=== PATIENT | male | born 1965 | race Caucasian/White ===

== ENCOUNTER → 2017-03-18 | Outpatient (CLI) | payer BC ==
--- NOTE | 2017-03-18 20:19 | PN ---
PROGRESS NOTE A 50-year-old male patient with severe symptomatic obstructive sleep apnea with an AHI up to 34, currently on CPAP pressure of 12, is coming in for an annual checkup. He is still very compliant. He is having some leaks around his original Donahue FX mask that he has been utilizing and he obviously needs his mask to be updated. I checked his compliancy data and he is using his CPAP 6 hours per night and his AHI is down to 1, is leaking around 37 L/minute and he is having some excessive oral dryness in the morning. I think the oral dryness is essentially related to his leaks and the fact that he does not have the appropriate heated tubing. All of his CPAP supplies will need to be refilled. He is benefiting from the treatment. He is waking up refreshed and alert and his body weight has been essentially stable with 2 pounds weight gain over the past 1 year. BP is 145/86, pulse 90 respirations 16, temperature 98.6, saturation 96% on room air. BMI is 40.7, weight is 260. Height is 5 feet 7 inches. GENERAL APPEARANCE: Obese, calm, comfortable. HEAD: Atraumatic, normocephalic. NECK: Supple. There is no JVD. There is no goiter or neck mass. Mallampati class IV. LUNGS: Clear to auscultation. HEART: Sounds are regular rate and rhythm. Normal S1, S2. No S3. No murmurs. ABDOMEN: Soft, nontender. No organomegaly. EXTREMITIES: There is no cyanosis or clubbing. NEUROLOGIC: Alert and oriented x3. There are no focal neurological deficits. PSYCHIATRIC: The patient has an appropriate mood and affect. IMPRESSION: Symptomatic obstructive sleep apnea with an apnea-hypopnea index of 34, currently on CPAP pressure of 12. Treatment remains successful. The patient remains compliant and he continues to benefit. He is having excessive leaks around the mask. PLAN: Reorder his CPAP mask and supplies. I introduced to him the AirFit N10 nose mask and I also gave him the Donahue FX wide nose mask and he will decide in between these 2 and refills will be given accordingly. He will be given a heated tubing system. Keep same pressure setting. Encourage weight loss. See me back in a year's time, earlier if needed. Treatment remains successful. MMODL / IJN: [id number] /
== END | disposition home or self-care (01) ==
LOC: SLEEP 16:40
PROVIDERS: ATTEND Internal Medicine Critical Care Medicine
DX: G47.33 Obstructive sleep apnea (adult) (pediatric) (principal); Z99.89 Dependence on other enabling machines and devices

== ENCOUNTER → 2018-02-02 | Outpatient (CLI) | payer BC ==
--- NOTE | 2018-02-02 10:14 | CT ---
EXAMINATION TYPE: CT brain wo/w con DATE OF EXAM: 02/02/2018 COMPARISON: None HISTORY: Dizziness and near syncopal episodes CT DLP: 2253 mGycm Automated exposure control for dose reduction was used. CONTRAST: CT scan of the head is performed without and with IV Contrast, patient injected with 100 mL of Isovue 300. FINDINGS: There is no abnormal enhancing mass or midline shift identified. The ventricles and sulci are within normal limits in size. The globes are intact and the visualized sinuses are remarkable for mucosal disease in the maxillary sinuses, ethmoid air cells. IMPRESSION: Negative contrast enhanced head CT exam. Mild sinus disease.
--- NOTE | 2018-02-02 10:35 | US ---
EXAMINATION TYPE: US carotid duplex BILAT DATE OF EXAM: 02/02/2018 COMPARISON: NONE CLINICAL HISTORY: R55 syncope, R07.89 Chest pain. EXAM MEASUREMENTS: RIGHT: Peak Systolic Velocity (PSV) cm/sec ----- Right CCA: 65.8 ----- Right ICA: 53.7 ----- Right ECA: 85.7 ICA/CCA ratio: 0.8 RIGHT: End Diastole cm/sec ----- Right CCA: 20.5 ----- Right ICA: 19.4 ----- Right ECA: 9.5 LEFT: Peak Systolic Velocity (PSV) cm/sec ----- Left CCA: 67.8 ----- Left ICA: 80.2 ----- Left ECA: 107.7 ICA/CCA ratio: 1.2 LEFT: End Diastole cm/sec ----- Left CCA: 18.3 ----- Left ICA: 33.3 ----- Left ECA: 28.1 VERTEBRALS (direction of flow): Right Vertebral: not visualized Left Vertebral: not visuallized Rhythm: Normal Technically difficult. Patient has large body habitus and short neck IMPRESSION: 1. No significant flow-limiting stenosis based on velocities. 2. Nonvisualization of the vertebral arteries during this exam Criteria for Assigning % of Stenosis / Diameter reduction (Estimation based on the indirect measurements of the internal carotid artery velocities (ICA PSV). 1. Normal (no stenosis)=ICA PSV < 125 cm/s: ratio < 2.0: ICA EDV<40 cm/s. 2. Less than 50% stenosis=ICA PSV < 125 cm/s: ratio < 2.0: ICA EDV<40 cm/s. 3. 50 to 69% stenosis=ICA PSV of 125 to 230 cm/s: ration 2.0 ? 4.0: ICA EDV 40-100 cm/s. 4. Greater than 70% stenosis to near occlusion= ICA PSV > 230 cm/s: ratio > 4.0: ICA EDV > 100 cm/s. 5. Near occlusion= ICA PSV velocities may be low or undetectable: variable ratio and ICA EDV. 6. Total occlusion=unable to detect flow.
--- NOTE | 2018-02-02 14:03 | EST ---
EXERCISE STRESS AGE: 52 SEX: M HT: 66 WT: 250 PROTOCOL: Murtaza stress test STAGE: 3 DURATION OF EXERCISE: 9:00 HEART RATE REST: 82 BLOOD PRESSURE REST: 131/82 MAXIMUM HEART RATE ACHIEVED: 145 MAXIMUM BLOOD PRESSURE: 168/57 85% MPHR: 145 100% MPHR: 170 METS: 10.3 INDICATIONS: Dizziness. CLINICAL INFORMATION: Baseline rhythm is sinus mechanism, rate of 82, normal axis and intervals, poor R-wave progression. Baseline blood pressure 131/82 mmHg. Patient exercised on Murtaza protocol for 9 minutes reaching peak rate of 145 beats per minute which is equal to 85% maximum predicted heart rate. Peak blood pressure 168/57 mmHg. Test was terminated due to fatigue. There was no chest pain. Electrocardiograph monitoring revealed no evidence of diagnostic ischemic ST deviation. FINDINGS: 1. Good exercise tolerance with normal electrocardiographic response to exercise. 2. No evidence of significant arrhythmia. MMODL / IJN: [id number] /
--- NOTE | 2018-02-03 06:31 | ECHOF ---
Referral Reason:R55 syncope, R07.89 Chest pain MEASUREMENTS -------- HEIGHT: 167.6 cm WEIGHT: 113.4 kg BP: RVIDd: 3.3 cm (< 3.3) IVSd: 1.3 cm (0.6 - 1.1) LVIDd: 4.4 cm (3.9 - 5.3) LVPWd: 1.3 cm (0.6 - 1.1) IVSs: 1.5 cm LVIDs: 3.1 cm LVPWs: 1.8 cm LAESV Index (A-L): 25.65 ml/m Ao Diam: 3.4 cm (2.0 - 3.7) AV Cusp: 2.4 cm (1.5 - 2.6) LA Diam: 3.6 cm (2.7 - 3.8) MV EXCURSION: 21.866 mm (> 18.000) MV EF SLOPE: 172 mm/s (70 - 150) EPSS: 0.5 cm MV E John: 0.83 m/s MV DecT: 255 ms MV A John: 0.80 m/s MV E/A Ratio: 1.04 RAP: 5.00 mmHg RVSP: 37.68 mmHg FINDINGS -------- Sinus rhythm. This was a technically good study. The left ventricular size is normal. There is mild concentric left ventricular hypertrophy. Overa ll left ventricular systolic function is normal with, an EF between 55 - 60 %. The right ventricle is mildly enlarged. Normal LA size by volume 22+/-6 ml/m2. The right atrium is normal in size. The aortic valve is trileaflet and appears structurally normal. The mitral valve is normal. Mild mitral regurgitation is present. Mild tricuspid regurgitation present. There is mild pulmonary hypertension. The right ventricular systolic pressure, as measured by Doppler, is 37.68mmHg. There is no pulmonic regurgitation present. The aortic root size is normal. Normal inferior vena cava with normal inspiratory collapse consistent with estimated right atrial pre ssure of 5 mmHg. There is no pericardial effusion. CONCLUSIONS -------- 1. Sinus rhythm. 2. This was a technically good study. 3. The left ventricular size is normal. 4. There is mild concentric left ventricular hypertrophy. 5. Overall left ventricular systolic function is normal with, an EF between 55 - 60 %. 6. The right ventricle is mildly enlarged. 7. Normal LA size by volume 22+/-6 ml/m2. 8. The aortic valve is trileaflet and appears structurally normal. 9. Mild mitral regurgitation is present. 10. Mild tricuspid regurgitation present. 11. There is mild pulmonary hypertension. 12. There is no pulmonic regurgitation present. 13. The aortic root size is normal. 14. Normal inferior vena cava with normal inspiratory collapse consistent with estimated right atrial pressure of 5 mmHg. 15. There is no pericardial effusion. PROFESSIONAL CASTER: Gaby Vazquez RDCS
== END | disposition home or self-care (01) ==
LOC: RADCTMAIN 08:46
PROVIDERS: ATTEND Family Medicine
DX: R55 Syncope and collapse (principal); R07.89 Other chest pain
CPT/HCPCS: 93017; 93306; 93880; 70470; 93005; Q9967

== ENCOUNTER → 2018-07-28 | Outpatient (CLI) | payer BC ==
--- NOTE | 2018-07-28 21:35 | PN ---
PROGRESS NOTE Christopher is a 52 coming in for a compliancy check regarding his obstructive sleep apnea and severe PURNIMA with an AHI of 32, and the patient is on a CPAP pressure of 12. He has lost about 12 pounds since last evaluation. Continues to be extremely compliant with a pressure of 12 cm of water. Based on the compliance data, the patient has been averaging more than 6 hours of CPAP use per night. His CPAP compliancy for more than 4 hours is above 75% is leak is 20 L/minutes. AHI is down to 0.7. Doing well. Using the Mirage FX nose mask. REVIEW OF SYSTEMS: Fourteen-point review of system was done. Negative other than the things mentioned above in history of present illness. No major hypersomnia or sleepiness. Quite comfortable with his mask. Weight has been fluctuating, is down for now. No nausea. No vomiting. No nasal dryness. No sinus infections. No aerophagia. No abdominal distention. No other complaints otherwise. PHYSICAL EXAMINATION: BP is 112/74, pulse 103, respirations 16, temperature 98.1 saturation 96% on room air. Height is 5 feet, 10 inches, weight 248, Arlington score is 4. BMI 38. GENERAL APPEARANCE: Calm, comfortable. HEENT: Head is atraumatic, normocephalic. NECK: Supple. Mallampati class IV. There is no goiter or neck mass. LUNGS: Clear to auscultation. HEART: Sounds regular rate and rhythm. Normal S1, S2. No S3. No murmurs. ABDOMEN: Soft, nontender. No organomegaly. EXTREMITIES: No edema. No cyanosis or clubbing. IMPRESSION: 1. Symptomatic obstructive sleep apnea AHI of 32, currently on CPAP pressure of 12, currently treatment continues to be successful. 2. Obesity with interval weight loss. Weight is down to 248. 3. Hypersomnia, improved. Arlington score is down to 4. PLAN: Encourage further weight loss. Switch this patient to a DreamWear nose mask medium size. Continue implementing good sleep hygiene measures and see me back in a year's time for a follow up. His treatment is extremely successful for now. MMODL / IJN: [id number] /
== END | disposition home or self-care (01) ==
LOC: SLEEP 16:17
PROVIDERS: ATTEND Internal Medicine Critical Care Medicine
DX: G47.33 Obstructive sleep apnea (adult) (pediatric) (principal); E66.9 Obesity, unspecified; Z68.38 Body mass index [BMI] 38.0-38.9, adult; Z99.89 Dependence on other enabling machines and devices

== ENCOUNTER 2019-11-14 17:30 | Emergency (ER) | payer BC ==
[2019-11-14] MEDS ORDERED: MORPHINE SULFATE 4 MG/ML SYRINGE IV STA (17:54)
[2019-11-14] MEDS ORDERED: SODIUM CHLORIDE 0.9% 1,000 ML IV STA (17:54)
[2019-11-14] MEDS ORDERED: ONDANSETRON 4 MG/2 ML VIAL IVP STA (17:56)
--- NOTE | 2019-11-14 18:00 | ED ---
General Adult HPI - General Chief complaint: Abdominal Pain Stated complaint: abd pain Time Seen by Provider: 11/14/19 17:44 Source: patient, RN notes reviewed, old records reviewed Mode of arrival: ambulatory Limitations: no limitations - History of Present Illness Initial comments: 53-year-old male presenting for evaluation of vomiting, diarrhea. Symptoms began yesterday morning approximately 36 hours prior to arrival. Initially the patient developed diarrhea which was associated with severe crampy abdominal pain. He then ate some clam chowder which did not sit well. He had again began to vomit. He's had diarrhea at least every hour over the past day. He did describes severe pain prior to the episodes of diarrhea with minimal discomfort in between. No blood in either the vomiting or the diarrhea - Related Data Home Medications Medication Instructions Recorded Confirmed Cetirizine HCl [Zyrtec] 10 mg PO DAILY PRN 11/14/19 11/14/19 Olmesartan Medoxomil [Benicar] 40 mg PO DAILY 11/14/19 11/14/19 Allergies Allergy/AdvReac Type Severity Reaction Status Date / Time No Known Allergies Allergy Verified 11/14/19 18:53 Review of Systems ROS Statement: Those systems with pertinent positive or pertinent negative responses have been documented in the HPI. ROS Other: All systems not noted in ROS Statement are negative. Past Medical History Past Medical History: Hypertension History of Any Multi-Drug Resistant Organisms: None Reported Past Surgical History: Orthopedic Surgery Past Psychological History: No Psychological Hx Reported Smoking Status: Current every day smoker Past Alcohol Use History: Daily Past Drug Use History: None Reported General Exam Limitations: no limitations General appearance: alert, in no apparent distress Head exam: Present: atraumatic, normocephalic Eye exam: Present: normal appearance, PERRL ENT exam: Present: normal exam Neck exam: Present: normal inspection. Absent: tenderness, meningismus Respiratory exam: Present: normal lung sounds bilaterally. Absent: respiratory distress Cardiovascular Exam: Present: normal rhythm, tachycardia GI/Abdominal exam: Present: soft, distended, hernia (Soft and easily reducible ventral hernia). Absent: tenderness, guarding, rebound Extremities exam: Present: normal inspection, full ROM Back exam: Present: normal inspection. Absent: full ROM, tenderness Neurological exam: Present: alert, oriented X3 Psychiatric exam: Present: normal affect, normal mood Skin exam: Present: warm, dry, intact. Absent: cyanosis, diaphoretic Course Vital Signs 11/14/19 11/14/19 17:40 18:38 Temperature 98.1 F 97.6 F Pulse Rate 113 H 92 Respiratory 18 18 Rate Blood Pressure 130/77 131/77 O2 Sat by Pulse 95 95 Oximetry Medical Decision Making - Medical Decision Making 53-year-old male with 36 hours of vomiting and diarrhea. He did have recent travel outside of the [facility]. I suspect this is a gastroenteritis. Patient's abdomen is soft nontender, no rebound or guarding. He has stable vitals. He is given IV hydration, morphine, and Zofran. On reevaluation is feeling much better, no pain, no further vomiting or diarrhea while in the emergency d epartment. His laboratory testing reveals leukocytosis, but is otherwise unremarkable. Normal kidney function, normal electrolytes. I did give this patient advised regarding return parameters he is eager for discharge. He is thirsty and hungry. He will return with worsening or changing symptoms. - Lab Data Result diagrams: 11/14/19 18:11 11/14/19 18:11 Lab Results 11/14/19 11/14/19 11/14/19 Range/Units 18:11 18:11 18:11 WBC 16.9 H (3.8-10.6) k/uL RBC 4.79 (4.30-5.90) m/uL Hgb 16.9 (13.0-17.5) gm/dL Hct 49.3 (39.0-53.0) % MCV 102.9 H (80.0-100.0) fL MCH 35.2 H (25.0-35.0) pg MCHC 34.2 (31.0-37.0) g/dL RDW 11.8 (11.5-15.5) % Plt Count 218 (150-450) k/uL Neutrophils % 80 % Lymphocytes % 11 % Monocytes % 5 % Eosinophils % 1 % Basophils % 1 % Neutrophils # 13.6 H (1.3-7.7) k/uL Lymphocytes # 1.8 (1.0-4.8) k/uL Monocytes # 0.8 (0-1.0) k/uL Eosinophils # 0.2 (0-0.7) k/uL Basophils # 0.1 (0-0.2) k/uL PT 10.7 (9.0-12.0) sec INR 1.0 (<1.2) APTT 25.5 (22.0-30.0) sec Sodium 135 L (137-145) mmol/L Potassium 4.0 (3.5-5.1) mmol/L Chloride 101 (98-107) mmol/L Carbon Dioxide 26 (22-30) mmol/L Anion Gap 8 mmol/L BUN 20 (9-20) mg/dL Creatinine 0.91 (0.66-1.25) mg/dL Est GFR (CKD-EPI)AfAm >90 (>60 ml/min/1.73 sqM) Est GFR (CKD-EPI)NonAf >90 (>60 ml/min/1.73 sqM) Glucose 150 H (74-99) mg/dL Plasma Lactic Acid Oleg (0.7-2.0) mmol/L Calcium 10.6 H (8.4-10.2) mg/dL Magnesium 1.9 (1.6-2.3) mg/dL Total Bilirubin 1.0 (0.2-1.3) mg/dL AST 45 (17-59) U/L ALT 45 (4-49) U/L Alkaline Phosphatase 126 (38-126) U/L Total Protein 7.9 (6.3-8.2) g/dL Albumin 4.4 (3.5-5.0) g/dL Amylase 48 (30-110) U/L Lipase 244 (23-300) U/L 11/14/19 Range/Units 18:11 WBC (3.8-10.6) k/uL RBC (4.30-5.90) m/uL Hgb (13.0-17.5) gm/dL Hct (39.0-53.0) % MCV (80.0-100.0) fL MCH (25.0-35.0) pg MCHC (31.0-37.0) g/dL RDW (11.5-15.5) % Plt Count (150-450) k/uL Neutrophils % % Lymphocytes % % Monocytes % % Eosinophils % % Basophils % % Neutrophils # (1.3-7.7) k/uL Lymphocytes # (1.0-4.8) k/uL Monocytes # (0-1.0) k/uL Eosinophils # (0-0.7) k/uL Basophils # (0-0.2) k/uL PT (9.0-12.0) sec INR (<1.2) APTT (22.0-30.0) sec Sodium (137-145) mmol/L Potassium (3.5-5.1) mmol/L Chloride (98-107) mmol/L Carbon Dioxide (22-30) mmol/L Anion Gap mmol/L BUN (9-20) mg/dL Creatinine (0.66-1.25) mg/dL Est GFR (CKD-EPI)AfAm (>60 ml/min/1.73 sqM) Est GFR (CKD-EPI)NonAf (>60 ml/min/1.73 sqM) Glucose (74-99) mg/dL Plasma Lactic Acid Oleg 1.2 (0.7-2.0) mmol/L Calcium (8.4-10.2) mg/dL Magnesium (1.6-2.3) mg/dL Total Bilirubin (0.2-1.3) mg/dL AST (17-59) U/L ALT (4-49) U/L Alkaline Phosphatase (38-126) U/L Total Protein (6.3-8.2) g/dL Albumin (3.5-5.0) g/dL Amylase (30-110) U/L Lipase (23-300) U/L Disposition Clinical Impression: Nausea vomiting and diarrhea Disposition: HOME SELF-CARE Condition: Good Instructions (If sedation given, give patient instructions): Acute Nausea and Vomiting (ED), Acute Diarrhea (ED) Is patient prescribed a controlled substance at d/c from ED?: No Referrals: Akash Maldonado MD [Primary Care Provider] - 1-2 days Time of Disposition: 19:13
[2019-11-14 18:21] LABS: Basophils # (A) 0.1 k/uL (0-0.2); Basophils % (A) 1 %; Eosinophils # (A) 0.2 k/uL (0-0.7); Eosinophils % (A) 1 %; HCT 49.3 % (39.0-53.0); HGB 16.9 gm/dL (13.0-17.5); Lymphocytes # (A) 1.8 k/uL (1.0-4.8); Lymphocytes % (A) 11 %; MCH 35.2 pg (25.0-35.0); MCHC 34.2 g/dL (31.0-37.0); MCV 102.9 fL (80.0-100.0); Mean Platelet Volume 7.7; Monocytes # (A) 0.8 k/uL (0-1.0); Monocytes % (A) 5 %; Neutrophils # (A) 13.6 k/uL (1.3-7.7); Neutrophils % (A) 80 %; Platelet Count 218 k/uL (150-450); RBC 4.79 m/uL (4.30-5.90); RDW 11.8 % (11.5-15.5); WBC 16.9 k/uL (3.8-10.6)
[2019-11-14 18:32] LABS: ALT 45 U/L (4-49); AST 45 U/L (17-59); African American GFR (CKD) >90 (>60 ml/min/1.73 sqM); Albumin 4.4 g/dL (3.5-5.0); Alkaline Phosphatase 126 U/L (38-126); Amylase 48 U/L (30-110); Anion Gap 8 mmol/L; Blood Urea Nitrogen 20 mg/dL (9-20); Calcium 10.6 mg/dL (8.4-10.2); Carbon Dioxide 26 mmol/L (22-30); Chloride 101 mmol/L (98-107); Glucose 150 mg/dL (74-99); Magnesium 1.9 mg/dL (1.6-2.3); Non-African American GFR(CKD) >90 (>60 ml/min/1.73 sqM); Sodium 135 mmol/L (137-145); Total Protein 7.9 g/dL (6.3-8.2)
[2019-11-14 18:33] LABS: Partial Thromboplastin Time 25.5 sec (22.0-30.0); Prothrombin Time 10.7 sec (9.0-12.0)
--- NOTE | 2019-11-14 19:01 | XR ---
KUB HISTORY: Abdominal pain Frontal KUB submitted on 3 images Lung bases are clear. There is no evident bowel obstruction or pneumoperitoneum. No pathologic calcif ication. Bone mineralization is normal. IMPRESSION: Nonobstructive bowel gas pattern.
[2019-11-14 19:34] VITALS: BP 141/80; PULSE 88; RESP 14; TEMP 98
== END 2019-11-14 19:30 | disposition home or self-care (01) ==
LOC: EC 17:30
DX: R11.2 Nausea with vomiting, unspecified (principal); R19.7 Diarrhea, unspecified; D72.829 Elevated white blood cell count, unspecified; R10.9 Unspecified abdominal pain; I10 Essential (primary) hypertension; F17.200 Nicotine dependence, unspecified, uncomplicated; Z79.899 Other long term (current) drug therapy
CPT/HCPCS: 36415; 80053; 82150; 83605; 83690; 83735; 85025; 85610; 85730; 74018; 99284; 96374; 96375; 96361; J2270; J2405

== ENCOUNTER 2020-02-01 09:17 | Day surgery (SDC) | payer BC ==
[2020-01-28 15:49] VITALS: BMI 39.5
[~2020-02-01 09:17] MED LIST: LACTATED RINGERS 1,000 ML IV SCH; LIDOCAINE 1% (10MG/ML) FOR IV START INTRADERMA PRN
[2020-02-01 09:39] VITALS: TEMP 97
[2020-02-01] MEDS ORDERED: PROPOFOL 10 MG/ML 20 ML VIAL IV ONE (10:29)
--- NOTE | 2020-02-01 11:13 | P.GSHP ---
History of Present Illness H&P Date: 02/01/20 Chief Complaint: Colon cancer screening Patient here today for colonoscopy. Last colonoscopy 7 years ago. Patient's mother had colon cancer. No bowel complaints. Past Medical History Past Medical History: Hypertension, Sleep Apnea/CPAP/BIPAP Additional Past Medical History / Comment(s): abdominal hernia, occ diarrhea, diverticulitis, rectal bleeding, History of Any Multi-Drug Resistant Organisms: None Reported Past Surgical History: Orthopedic Surgery Additional Past Surgical History / Comment(s): rt knee surgery after football injury Past Anesthesia/Blood Transfusion Reactions: No Reported Reaction Smoking Status: Current every day smoker - Past Family History Mother Family Medical History: Cancer Additional Family Medical History / Comment(s): colon Medications and Allergies Home Medications Medication Instructions Recorded Confirmed Type Cetirizine HCl [Zyrtec] 10 mg PO DAILY 11/14/19 02/01/20 History Olmesartan Medoxomil [Benicar] 40 mg PO DAILY 11/14/19 02/01/20 History hydroCHLOROthiazide [Hydrodiuril] 25 mg PO DAILY 01/28/20 02/01/20 History Allergies Allergy/AdvReac Type Severity Reaction Status Date / Time No Known Allergies Allergy Verified 01/28/20 15:41 Surgical - Exam Vital Signs Temp Pulse Resp BP Pulse Ox 97.0 F L 80 17 146/87 95 02/01/20 09:38 02/01/20 09:38 02/01/20 09:38 02/01/20 09:38 02/01/20 09:38 Physical exam: General: Well-developed, well-nourished HEENT: Normocephalic, sclerae nonicteric Abdomen: Nontender, nondistended Extremities: No edema Neuro: Alert and oriented Assessment and Plan (1) Colon cancer screening Narrative/Plan: Will proceed with colonoscopy Current Visit: Yes Status: Acute Code(s): Z12.11 - ENCOUNTER FOR SCREENING FOR MALIGNANT NEOPLASM OF COLON SNOMED Code(s): 597596913
[2020-02-01] MEDS ORDERED: IV FLUID CONTINUATION 1,000 ML IV ONE (11:31)
--- NOTE | 2020-02-01 11:32 | P.PCN ---
Date of Procedure: 02/01/20 Procedure(s) Performed: PREOPERATIVE DIAGNOSIS: Colon cancer screening, family history in mother POSTOPERATIVE DIAGNOSIS: Transverse colon polyp, rectal polyp, mild left sided colitis, diverticulosis PROCEDURE: Colonoscopy with polypectomy and biopsy ANESTHESIA: MAC SURGEON: Carson Lowry M.D. SPECIMENS: Polyps, colitis ENDOSCOPIC PROCEDURE: The patient was placed on the endoscopy table in the left decubitus position. The Olympus colonoscope was inserted into the anus and passed under direct visualization to the base of the cecum. The appendiceal orifice was visualized. From that point the scope was slowly withdrawn inspecting all surfaces carefully. There were no neoplastic inflammatory or p olypoid lesions throughout the cecum and ascending colon. In the transverse colon a small polyp was identified and removed using the snare with cautery technique. The remainder of the transverse descending and sigmoid colon was free of polyps. In the rectum another polyp was identified and removed in a similar fashion. This was in the proximal rectum. The patient had left-sided diverticulosis present. There was mild inflammation of the mucosa in the mid sigmoid colon. This may be on the basis of resolving diverticulitis mild colitis. Biopsies with the cold biopsy forceps took place. Digital rectal examination was normal. The patient was taken to the recovery room in stable condition per anesthesia guidelines. RECOMMENDATIONS: Await biopsy results.
[2020-02-01 11:58] VITALS: BP 126/78; PULSE 70; RESP 18
== END 2020-02-01 12:13 | disposition home or self-care (01) ==
LOC: ORWHC2ENDO 09:17
PROVIDERS: ATTEND Surgery
DX: Z12.11 Encounter for screening for malignant neoplasm of colon (principal); D12.3 Benign neoplasm of transverse colon; K62.1 Rectal polyp; K51.50 Left sided colitis without complications; K57.30 Diverticulosis of large intestine without perforation or abscess without bleeding; I10 Essential (primary) hypertension; G47.33 Obstructive sleep apnea (adult) (pediatric); K46.9 Unspecified abdominal hernia without obstruction or gangrene; F17.200 Nicotine dependence, unspecified, uncomplicated; Z99.89 Dependence on other enabling machines and devices; Z87.19 Personal history of other diseases of the digestive system; Z98.890 Other specified postprocedural states; Z87.828 Personal history of other (healed) physical injury and trauma; Z79.899 Other long term (current) drug therapy; Z80.0 Family history of malignant neoplasm of digestive organs
CPT/HCPCS: 88305; 45380; 45385; J2704

== ENCOUNTER → 2020-04-18 | Outpatient (CLI) | payer BC ==
--- NOTE | 2020-04-18 17:53 | PN ---
PROGRESS NOTE Christopher is 54 with a known history of obstructive sleep apnea coming in for an annual check regarding his PURNIMA. He is still on CPAP therapy and he is doing very well while on treatment. His only complaint is occasional snoring, and I attribute this to leaks from his mouth. I checked the compliance data on his CPAP machine, and the patient is doing excellent at a pressure of 12 cm of water. He is using the AirFit N30i nasal mask, and based on the compliance data, the patient has been utilizing his machine every night without any interruption and achieving more than 4 hours of CPAP use approximately 70% of the time. His AHI is down to 0.7 while on treatment. His leak is on the order of 10 L/minute. He is alert and awake during the day. No major hypersomnia, somnolence or sleepiness. Note that his baseline AHI was 32, consistent with severe obstructive sleep apnea. His weight has been up by around 10 pounds since his original diagnosis. No other complaints otherwise for now. His machine is functional and he has no new-onset comorbidities. His blood pressure is under good control. BP is 125/77, pulse 77, respirations 20, temperature 96.6, saturation 97%. Weight is 258. Portland score is 11, BMI 39.2. GENERAL APPEARANCE: Calm, comfortable, obese. HEAD: Atraumatic, normocephalic. NECK: Supple. No JVD. No goiter or neck masses. LUNGS: Clear to auscultation. HEART: Heart sounds are regular rate and rhythm. Normal S1, S2. No S3, S4. No murmurs. ABDOMEN: Soft, nontender. No organomegaly. EXTREMITIES: No edema. No cyanosis or clubbing. NEUROLOGIC: Awake and alert. There is no focal neurological deficit. IMPRESSION: 1. Severe obstructive sleep apnea, AHI of 32, currently on CPAP pressure of 12 cm of water. Treatment continues to be successful. 2. Limited snoring, probably related to some oral leaks. 3. Obesity with a BMI of 39.2 with interval 10-pound weight gain. 4. Hypersomnia, recovered. Portland score is low. 5. Hypertension, well controlled. PLAN: 1. Continue using the same CPAP machine at the same level of pressure, which is 12 cm of water. 2. Refill the mask and update the mask to an AirFit N30i, medium size. 3. Encourage weight loss. 4. Allow the patient to use a chin strap to eliminate the snoring. 5. See me back in a year's time in followup. MUSHTAQ / IJN: [id number] /
== END | disposition home or self-care (01) ==
LOC: SLEEP 16:34
PROVIDERS: ATTEND Internal Medicine Critical Care Medicine
DX: G47.33 Obstructive sleep apnea (adult) (pediatric) (principal); E66.9 Obesity, unspecified; I10 Essential (primary) hypertension; Z68.39 Body mass index [BMI] 39.0-39.9, adult; Z99.89 Dependence on other enabling machines and devices

== ENCOUNTER → 2021-01-09 | Outpatient (CLI) | payer BC ==
--- NOTE | 2021-01-09 18:57 | PN ---
PROGRESS NOTE Christopher is 55, coming in for an annual check regarding obstructive sleep apnea. The patient is currently on CPAP pressure at 12 cm of water and using a nasal mask. During his last evaluation I tried him on an AirFit N20i nasal mask, which he tried, and he was unable to achieve a good seal. He went back and he used his original nose mask, which is probably more comfortable for him. On today's evaluation, we discussed the possibility of switching the patient to a full-face mask. I noticed that his compliance has gone down. He has utilized his machine only 18/30 days and he has used the machine on an average of 6.1 hours while on. His leak is around 13 L/minute. His AHI is down to 1.1. While on treatment, he feels better. His sleep quality continues to improve. The issue for now is finding him an appropriate mask interface. His weight is down by around 12 pounds since his last evaluation. His vitals: BP is 134/84, pulse 72, respirations 16, temperature 97.4, saturation 97% on room air. BMI 37.7. Moran score is 8. Weight is 246. GENERAL APPEARANCE: Calm, comfortable. HEAD: Atraumatic, normocephalic. Neck is supple. No JVD. No goiter or neck masses. Mallampati class IV. LUNGS: Diminished; otherwise clear. Heart sounds are regular rate and rhythm. Normal S1, S2. No S3, S4. No murmurs. ABDOMEN: Soft, nontender. No organomegaly. EXTREMITIES: No edema. No cyanosis or clubbing. IMPRESSION: 1. Severe obstructive sleep apnea, AHI of 32, currently on CPAP pressure of 12. Compliance has dropped compared to last year, mainly due to mask-related issues. 2. Hypersomnia, improved. Current Moran score is 8. 3. Hypertension. 4. Obesity with interval 12-pound weight loss. PLAN: 1. Continue CPAP therapy. Switch this patient to an APAP, pressure minimum of 6, maximum of 12, with a RAMP time of 30 minutes. 2. Offer the patient a full-face mask. I offered him the AirFit F20 medium-sized full- face mask. 3. Encourage further weight loss. 4. Monitor the clinical response to the full-face mask and let me know accordingly. Will order more masks if he is able to tolerate a full-face mask without any major difficulties. Will continue to follow. MMODL / IJN: [id number] /
== END ==
LOC: SLEEP 16:01
PROVIDERS: ATTEND Internal Medicine Critical Care Medicine
DX: G47.33 Obstructive sleep apnea (adult) (pediatric) (principal); I10 Essential (primary) hypertension; E66.9 Obesity, unspecified; Z99.89 Dependence on other enabling machines and devices; Z68.37 Body mass index [BMI] 37.0-37.9, adult; F17.200 Nicotine dependence, unspecified, uncomplicated

== ENCOUNTER → 2022-01-09 | Outpatient (CLI) | payer BC ==
--- NOTE | 2022-01-09 21:41 | CT ---
EXAMINATION TYPE: CT urogram wo/w con DATE OF EXAM: 01/09/2022 COMPARISON: Abdominal x-ray November 14, 2019 HISTORY: Gross hematuria CT DLP: 3445 mGycm, Automated Exposure Control for Dose Reduction was Utilized. CONTRAST: CT scan of the abdomen and pelvis is performed without oral and without and with IV Contrast, patient injected with 100ML mL of Isovue 300. Urogram protocol with 3-D reconstructed images created on an [employer] workstation and reviewed. FINDINGS: KUB: Noncontrast images show no renal calculi bilaterally. Postcontrast images show symmetric cortico medullary uptake and excretion without concerning solid or cystic renal mass identified in either kid arsh. Satisfactory opacification of the bilateral ureters without calculus. Urinary bladder shows no s uspicious focal mass or intraluminal calculus. LUNG BASES: Trace anterior inferior pericardial effusion. Calcification at the level of the mitral va lve. LIVER/GB: Tiny dependent calcified gallstone. Visualized liver isodense to slightly hypodense relativ e to spleen on noncontrast images consistent with hepatocellular disease. Liver size mildly enlarged. PANCREAS: No significant abnormality is seen. SPLEEN: Spleen mildly enlarged at 14.4 cm long axis axial image 22 series 6. ADRENALS: No significant abnormality is seen. BOWEL: Suboptimal evaluation without enteric contrast. Sigmoid colonic diverticulosis. Mild fat stran ding involving sigmoid colon in the pelvis axial image 67. Acute diverticulitis is suspected. No free air. No well-formed fluid collection or abscess seen. PROSTATE/SEMINAL VESICLES: Enlarged prostate consistent with BPH bulging on bladder base. LYMPH NODES: No greater than 1cm abdominal or pelvic lymph nodes are appreciated. OSSEOUS STRUCTURES: No significant abnormality is seen. OTHER: Moderate size fat-containing bilateral inguinal hernias. [id number] calcified plaque of the aorta extends into branch vessels. IMPRESSION: 1. Source of gross hematuria not identified. 2. Hepatomegaly and underlying hepatocellular disease. Mild splenomegaly noted. No intra-abdominal as cites. Correlate clinically. 3. Redundant sigmoid colon with diverticulosis and suggestion of mild uncomplicated acute diverticuli tis in the pelvis. Correlate clinically. [employer] notification to the ordering physician is performed at time of dictation.
== END | disposition home or self-care (01) ==
LOC: RADCTMAIN 14:22
PROVIDERS: ATTEND Urology
DX: K76.89 Other specified diseases of liver (principal); R16.2 Hepatomegaly with splenomegaly, not elsewhere classified; K57.30 Diverticulosis of large intestine without perforation or abscess without bleeding
CPT/HCPCS: 74178; 74400; Q9967

== ENCOUNTER → 2024-02-11 | Outpatient (CLI) | payer BC ==
--- NOTE | 2024-02-11 09:06 | MM ---
Reason for Exam: Clinical finding. Indicated Problems: Lump or thickening of the right side for 3 Week(s). Tissue Density: The breasts are almost entirely fatty. Findings: Analyzed By CAD. Right-sided retroareolar density noted likely reflecting gynecomastia. Ultrasound correlation is advised. Left breast is unremarkable. Overall Assessment: Incomplete: need additional imaging evaluation, BI-RAD 0 Management: Diagnostic Breast Ultrasound of the left breast. . Results were given to the patient verbally at the time of exam. Patient should continue monthly self-breast exams. A clinical breast exam by your physician is recommended on an annual basis. This exam should not preclude additional follow-up of suspicious palpable abnormalities. Note on Jenn scores and lifetime risk: 1. A Jenn score greater than 3% is considered moderate risk. If this is the case, consider specialist referral to assess eligibility for a risk reducing agent. 2. If overall lifetime risk for the development of breast cancer is 20% or higher, the patient may qualify for future screening with alternating mammogram and breast MRI. [facility], , 02/11/2024 9:03 AM. Electronically signed and approved by: Josh Lucero M.D. Radiologis
--- NOTE | 2024-02-11 09:08 | USB ---
Reason for Exam: Clinical finding. Technique: Method: Targeted. Findings: The axilla of the right breast and the retroareolar of both breasts were scanned. Electronically signed and approved by: Josh Lucero M.D. Radiologis
== END | disposition home or self-care (01) ==
LOC: RADMAMWWP 07:07
PROVIDERS: ATTEND Family Medicine
DX: N63.10 Unspecified lump in the right breast, unspecified quadrant (principal); N62 Hypertrophy of breast
CPT/HCPCS: 77062; 77066